=== PATIENT | female | born 1985 ===

== ENCOUNTER 2018-12-08 08:07 | Emergency (ER) | payer BC, OTHER ==
[2018-12-08 08:14] VITALS: BMI 25.7
[2018-12-08 08:24] VITALS: RESP 18; O2SAT 100
[2018-12-08] MEDS ORDERED: Sodium Chloride 0.9% 1,000 ML IV STA (08:37)
--- NOTE | 2018-12-08 08:38 | ED PDOC ---
Arrival/HPI - History of Present Illness Narrative History of Present Illness (Text): 12/08/18 08:33 Patient is a 33 year old female with past medical history of ovarian cancer s/p right oopherectomy presenting with chief complaint of abdominal pain, constant, in her right lower side radiating to her right side for the past two days. Admits to nausea and two episodes of vomiting. Currently taking norfloxacin for UTI. Denies fevers, chills, chest pain, shortness of breath, diarrhea. Time/Duration: < week Symptom Onset: Sudden Symptom Course: Unchanged Severity Level: Moderate <Leonardo Mattson - Last Filed: 12/08/18 12:23> Past Medical History - Provider Review Nursing Documentation Reviewed: Yes - Infectious Disease Hx of Infectious Diseases: None - Reproductive Menopause: No - Cardiac Hx Cardiac Disorders: No - Pulmonary Hx Respiratory Disorders: No - Neurological Hx Neurological Disorder: No - HEENT Hx HEENT Disorder: No - Renal Hx Renal Disorder: No - Endocrine/Metabolic Hx Endocrine Disorders: No - Hematological/Oncological Hx Blood Disorders: No - Integumentary Hx Dermatological Disorder: No - Musculoskeletal/Rheumatological Hx Musculoskeletal Disorders: No - Gastrointestinal Hx Gastrointestinal Disorders: No - Genitourinary/Gynecological Hx Genitourinary Disorders: Yes Hx Ovarian Cancer: Yes - Psychiatric Hx Depression: No Hx Emotional Abuse: No Hx Physical Abuse: No Hx Substance Use: No - Past Surgical History Past Surgical History: No Previous - Surgical History Other/Comment: breast implants; removed L ovary - Anesthesia Hx Anesthesia: Yes Hx Anesthesia Reactions: No Hx Malignant Hyperthermia: No - Suicidal Assessment Feels Threatened In Home Enviroment: No <Leonardo Mattson - Last Filed: 12/08/18 12:23> - Provider Review Primary Care Physician: Adeline Shelton DO <Michael Gillespie - Last Filed: 12/08/18 14:51> Family/Social History - Physician Review Nursing Documentation Reviewed: Yes Family/Social History: No Known Family HX Smoking Status: Never Smoked Hx Alcohol Use: No Hx Substance Use: No <Leonardo Mattson - Last Filed: 12/08/18 12:23> Allergies/Home Meds <Leonardo Mattson - Last Filed: 12/08/18 12:23> <Michael Gillespie - Last Filed: 12/08/18 14:51> Allergies/Adverse Reactions: Allergies No Known Allergies Allergy (Verified 08/20/12 12:00) Review of Systems - Review of Systems Respiratory: Normal Cardiovascular: Normal Gastrointestinal: Abdominal Pain, Nausea, Vomiting Neurological: Normal <Leonardo Mattson - Last Filed: 12/08/18 12:23> Physical Exam Vital Signs Reviewed: Yes Vital Signs Pulse Resp BP Pulse Ox 12/08/18 08:07 95 H 18 110/58 L 100 Blood Pressure: Normal Pulse: Regular Respiratory Rate: Normal Appearance: Positive for: Non-Toxic Pain Distress: Mild Mental Status: Positive for: Alert and Oriented X 3 - Systems Exam Head: Present: Atraumatic, Normocephalic Pupils: Present: PERRL Extroacular Muscles: Present: EOMI Conjunctiva: Present: Normal Mouth: Present: Moist Mucous Membranes Respiratory/Chest: Present: Clear to Auscultation, Good Air Exchange. No: Respiratory Distress, Accessory Muscle Use Cardiovascular: Present: Regular Rate and Rhythm, Normal S1, S2 Abdomen: Present: Normal Bowel Sounds. No: Tenderness, Distention, Rebound, Guarding Upper Extremity: Present: Normal Inspection Neurological: Present: GCS=15, CN II-XII Intact, Speech Normal Skin: Present: Warm, Dry, Normal Color Psychiatric: Present: Alert, Oriented x 3 <Leonardo Mattson - Last Filed: 12/08/18 12:23> Vital Signs Temp Pulse Resp BP Pulse Ox 12/08/18 10:47 98.7 F 86 18 98/72 L 100 12/08/18 08:07 95 H 18 110/58 L 100 <Michael Gillespie - Last Filed: 12/08/18 14:51> Medical Decision Making ED Course and Treatment: 12/08/18 08:41 Impression: 33 year old female with abdominal pain Plan: - CBC, CMP, Mg - lipase - UA - urine - Tylenol - Zofran - IVF - Reassess and disposition Prior Visits: Notes and results from previous visits were reviewed. Progress Notes: 12/08/18 10:44 FINDINGS: LOWER THORAX: Unremarkable. LIVER: Unremarkable. No gross lesion or ductal dilatation. GALLBLADDER AND BILE DUCTS: Unremarkable. PANCREAS: Unremarkable. No gross lesion or ductal dilatation. SPLEEN: Unremarkable. ADRENALS: Unremarkable. No mass. KIDNEYS AND URETERS: There is a 3 mm stone at the right UVJ. There is mild right-sided hydronephrosis. The stone is seen on coronal image 63 and axial image 125 of series 3. VASCULATURE: Unremarkable. No aortic aneurysm. No aortic atherosclerotic calcification or mural plaque present. BOWEL: Unremarkable. No obstruction. No gross mural thickening. APPENDIX: Unremarkable. Normal appendix. PERITONEUM: Unremarkable. No free fluid. No free air. LYMPH NODES: Unremarkable. No enlarged lymph nodes. BLADDER: Unremarkable. REPRODUCTIVE: Unremarkable. BONES: No acute fracture. OTHER FINDINGS: None. IMPRESSION: There is a 3 mm stone at the right UVJ. There is mild right-sided hydronephrosis. Labs and imaging reviewed. Patient hemodynamically stable, optimized for discharge. Reports improvement in symptoms. Patient in agreement with plan of management. - Lab Interpretations I have reviewed the lab results: Yes <Leonardo Mattson - Last Filed: 12/08/18 12:23> ED Course and Treatment: 12/08/18 14:51 pt seen with resdient/ s/p 3mm stone right uvj. no e/o of infection pain impreoved. stable for outpt managemnt agree with resident findings. - Lab Interpretations Lab Results: PT 11.4 SECONDS (9.4-12.5) 12/08/18 08:55 INR 1.01 12/08/18 08:55 APTT 29.5 Seconds (26.9-38.3) 12/08/18 08:55 Total Bilirubin 0.2 mg/dL (0.2-1.3) 12/08/18 08:55 AST 25 U/L (14-36) 12/08/18 08:55 ALT 20 U/L (7-56) 12/08/18 08:55 Alkaline Phosphatase 49 U/L (38-126) 12/08/18 08:55 Total Protein 7.6 g/dL (5.8-8.3) 12/08/18 08:55 Albumin 4.3 g/dL (3.0-4.8) 12/08/18 08:55 Globulin 3.3 gm/dL 12/08/18 08:55 Albumin/Globulin Ratio 1.3 (1.1-1.8) 12/08/18 08:55 Lipase 198 U/L (23-300) 12/08/18 08:55 Urine Color Yellow (YELLOW) 12/08/18 08:35 Urine Appearance Slight-cloudy (CLEAR) 12/08/18 08:35 Urine pH 6.0 (4.7-8.0) 12/08/18 08:35 Ur Specific Beaman >= 1.030 (1.005-1.035) 12/08/18 08:35 Urine Protein 30 mg/dL (<30 mg/dL) H 12/08/18 08:35 Urine Glucose (UA) Negative mg/dL (NEGATIVE) 12/08/18 08:35 Urine Ketones Negative mg/dL (NEGATIVE) 12/08/18 08:35 Urine Blood Moderate (NEGATIVE) H 12/08/18 08:35 Urine Nitrate Negative (NEGATIVE) 12/08/18 08:35 Urine Bilirubin Negative (NEGATIVE) 12/08/18 08:35 Urine Urobilinogen 0.2 E.U./dL (<1 E.U./dL) 12/08/18 08:35 Ur Leukocyte Esterase Negative Shabana/uL (NEGATIVE) 12/08/18 08:35 Urine RBC 15 - 20 /hpf (0-2) H 12/08/18 08:35 Urine WBC 1 - 3 /hpf (0-6) 12/08/18 08:35 Ur Epithelial Cells Many /hpf (0-5) H 12/08/18 08:35 Amorphous Sediment Few /hpf (NONE) 12/08/18 08:35 Urine Bacteria Many /hpf (NONE) 12/08/18 08:35 Urine Other Uyeast /hpf 12/08/18 08:35 Urine HCG, Qual Negative (NEGATIVE) 12/08/18 08:35 Urine HCG, Qual Negative (NEGATIVE) 12/08/18 08:35 - RAD Interpretation Radiology Orders: 12/08/18 09:07 ABD & PELVIS W/O PO OR IV CONT [CT] Stat - Medication Orders Current Medication Orders: Discontinued Medications Acetaminophen (Tylenol 325mg Tab) 975 mg PO STAT STA Stop: 12/08/18 08:38 Last Admin: 12/08/18 08:58 Dose: 975 mg Sodium Chloride (Sodium Chloride 0.9%) 1,000 mls @ 1,000 mls/hr IV .Q1H STA Stop: 12/08/18 09:36 Last Admin: 12/08/18 08:57 Dose: 1,000 mls/hr eMAR Start Stop Document 12/08/18 08:57 [email or web address] (Rec: 12/08/18 08:57 AHUJP [id number]) Intravenous Solution Start Date 12/08/18 Start Time 08:57 End Date 12/08/18 End time 09:57 Total Infusion Time 60 Ondansetron HCl (Zofran Inj) 4 mg IVP STAT STA Stop: 12/08/18 08:39 Last Admin: 12/08/18 08:57 Dose: 4 mg IVP Administration Document 12/08/18 08:57 AHUJP (Rec: 12/08/18 08:58 AHUJP [place] [id number]) Charges for Administration # of IVP Administrations 1 <Michael Gillespie - Last Filed: 12/08/18 14:51> Disposition/Present on Arrival - Present on Arrival Any Indicators Present on Arrival: No History of DVT/PE: No History of Uncontrolled Diabetes: No Urinary Catheter: No History of Decub. Ulcer: No History Surgical Site Infection Following: None - Disposition Have Diagnosis and Disposition been Completed?: Yes Disposition Time: 10:44 <Leonardo Mattson - Last Filed: 12/08/18 12:23> <Michael Gillespie - Last Filed: 12/08/18 14:51> - Disposition Diagnosis: Kidney stone Disposition: HOME/ ROUTINE Condition: STABLE Discharge Instructions (ExitCare): Kidney Stones in Adults Print Language: CHINESE Additional Instructions: see specialist. return to er with worsening. Prescriptions: Ibuprofen [Motrin Tab] 600 mg PO Q8 PRN #20 tab PRN Reason: Pain, Mild (1-3) oxyCODONE/Acetaminophen [Percocet 5/325 mg Tab] 1 ea PO Q6 PRN #10 tab PRN Reason: Pain, Severe (8-10) Tamsulosin [Flomax] 0.4 mg PO DAILY #10 cap Referrals: Adeline Shelton DO [Primary Care Provider] - Follow up with primary Dante Carlson MD [Staff Provider] - Follow up with primary Forms: [employer] (Russian)
[2018-12-08 09:01] LABS: URINE BILIRUBIN NEGATIVE (NEGATIVE); URINE BLOOD MODERATE (NEGATIVE); URINE GLUCOSE (UA) NEGATIVE (NEGATIVE); URINE LEUKOCYTE ESTERASE NEGATIVE Leu/uL (NEGATIVE); URINE PROTEIN 30 mg/dL (<30 mg/dL); URINE UROBILINOGEN 0.2 E.U./dL (<1 E.U./dL)
[2018-12-08 09:02] LABS: URINE APPEARANCE SLIGHT-CLOUDY (CLEAR); URINE COLOR YELLOW (YELLOW)
[2018-12-08 09:04] LABS: URINE RBC 15 - 20 /hpf (0-2)
[2018-12-08 09:05] LABS: HCG,QUALITATIVE URINE NEGATIVE (NEGATIVE); URINE AMORPHOUS SEDIMENT FEW /hpf; URINE BACTERIA MANY /hpf; URINE EPITHELIAL CELLS MANY /hpf (0-5)
[2018-12-08 09:09] LABS: BASO # 0.02 K/mm3 (0.0-2.0); BASO % 0.3 % (0.0-3.0); EOS # 0.2 (0.0-0.7); EOS % 1.9 % (1.5-5.0); LYMPH # 1.4 (1.2-3.4); LYMPH % 16.9 % (22.0-35.0); MEAN CELL VOLUME 87.6 fl (80.0-105.0); MEAN CORPUSCULAR HEMOGLOBIN 29.9 pg (25.0-35.0); MEAN CORPUSCULAR HGB CONC 34.1 g/dl (31.0-37.0); MEAN PLATELET VOLUME 9.8 fl (7.0-11.0); MONO # 0.4 (0.1-0.6); MONO % 4.6 % (1.0-6.0); RBC 4.68 10^6/uL (3.5-6.1); RED CELL DISTRIBUTION WIDTH 12.6 % (11.5-14.5)
[2018-12-08 09:19] LABS: ALB/GLOB RATIO 1.3 (1.1-1.8); ALBUMIN 4.3 g/dL (3.0-4.8); ALT/SGPT 20 U/L (7-56); AST/SGOT 25 U/L (14-36); BLOOD UREA NITROGEN 13 mg/dL (7-21); GFR NON-AFRICAN AMERICAN > 60; LIPASE 198 U/L (23-300)
[2018-12-08 09:22] LABS: INR 1.01; PARTIAL THROMBOPLASTIN TIME 29.5 Seconds (26.9-38.3); PROTHROMBIN TIME 11.4 SECONDS (9.4-12.5)
--- NOTE | 2018-12-08 10:14 | CT ---
Date of service: 12/08/2018 PROCEDURE: CT Abdomen and Pelvis without intravenous contrast HISTORY: rigth flank pain COMPARISON: None. TECHNIQUE: Technique. Contrast dose: Radiation dose: Total exam DLP = 197.74 mGy-cm. This CT exam was performed using one or more of the following dose reduction techniques: Automated exposure control, adjustment of the mA and/or kV according to patient size, and/or use of iterative reconstruction technique. FINDINGS: LOWER THORAX: Unremarkable. LIVER: Unremarkable. No gross lesion or ductal dilatation. GALLBLADDER AND BILE DUCTS: Unremarkable. PANCREAS: Unremarkable. No gross lesion or ductal dilatation. SPLEEN: Unremarkable. ADRENALS: Unremarkable. No mass. KIDNEYS AND URETERS: There is a 3 mm stone at the right UVJ. There is mild right-sided hydronephrosis. The stone is seen on coronal image 63 and axial image 125 of series 3. VASCULATURE: Unremarkable. No aortic aneurysm. No aortic atherosclerotic calcification or mural plaque present. BOWEL: Unremarkable. No obstruction. No gross mural thickening. APPENDIX: Unremarkable. Normal appendix. PERITONEUM: Unremarkable. No free fluid. No free air. LYMPH NODES: Unremarkable. No enlarged lymph nodes. BLADDER: Unremarkable. REPRODUCTIVE: Unremarkable. BONES: No acute fracture. OTHER FINDINGS: None. IMPRESSION: There is a 3 mm stone at the right UVJ. There is mild right-sided hydronephrosis.
[2018-12-08 10:48] VITALS: BP 98/72; PULSE 86; TEMP 98.7
== END 2018-12-08 10:50 | disposition home or self-care (01) ==
LOC: ED 08:07
DX: N20.0 Calculus of kidney (principal); Z85.43 Personal history of malignant neoplasm of ovary
CPT/HCPCS: 74176; 80053; 81001; 83690; 83735; 84703; 85025; 85610; 85730; 96361; 96374; 99283; J2405; J7030